=== PATIENT | female | born 1960 | race Caucasian/White ===

== ENCOUNTER 2017-04-28 10:34 | Emergency (ER) | payer SELFPAY ==
[2017-04-28 11:29] VITALS: BP 160/97
--- NOTE | 2017-04-28 11:56 | UC ---
Dizzy HPI HPI Summary: Pt presents with dizziness. She tells me that she received the flu shot 6 days ago. 5 days ago she ate seafood for dinner and fault nauseous afterwards. 4 days ago she was getting ready to go for a morning walk, bent over to pet the neighbor's dog, and when she stood up - she had severe dizziness. Later that day the dizziness persisted and she started vomiting (a total of ~9 times that day). For the past 3 days she has still had dizziness and feeling off balance, but no vomiting. She also complains of her left ear feeling "full" with a lot of "pressure". Denies headache, pain, ST, cough, SOB, chest pain, palpitations, N/V/D/C other than noted, no slurring of speech, vision changes, weakness or numbness. She also tells me that she has a history of sinus surgery. - History Of Current Complaint Chief Complaint: UCEar Stated Complaint: EARS CLOGGED, AND DIZZINESS Time Seen by Provider: 04/28/17 11:55 Hx Obtained From: Patient Onset/Duration: Sudden Onset Timing: Constant Severity Initially: Moderate Severity Currently: Moderate Pain Intensity: 6 Pain Scale Used: 0-10 Numeric Character: Head Spinning, Room Spinning, Dizzy Aggravating Factor(s): Position Change, Change In Head Position Alleviating Factor(s): Nothing - Allergies/Home Medications Allergies/Adverse Reactions: Allergies Allergy/AdvReac Type Severity Reaction Status Date / Time Penicillins [PCN] Allergy Rash Verified 04/28/17 10:58 Home Medications: Home Medications Hydrochlorothiazide [Microzide-] 12.5 mg PO DAILY 04/28/17 [History Confirmed ] Pseudoephedrine HCl [Sudafed 12 Hour] 120 mg PO 04/28/17 [History] Try Cyclin Lo 1 tab 04/28/17 [History] PMH/Surg Hx/FS Hx/Imm Hx Previously Healthy: Yes - Surgical History Surgical History: Yes - Sinus surgery - Family History Known Family History: Positive: None - Social History Occupation: Employed Full-time Lives: With Family Alcohol Use: Occasionally Substance Use Type: None Smoking Status (MU): Never Smoked Tobacco Review of Systems Constitutional: Negative Skin: Negative Eyes: Negative ENT: Ear Ache Respiratory: Negative Cardiovascular: Negative Gastrointestinal: Negative Genitourinary: Negative Motor: Negative Neurovascular: Negative Musculoskeletal: Negative Neurological: Other - Dizziness Psychological: Negative Is Patient Immunocompromised?: No All Other Systems Reviewed And Are Negative: Yes Physical Exam Triage Information Reviewed: Yes Appearance: Well-Appearing, Well-Nourished Vital Signs: Initial Vital Signs Temp 98.1 F 04/28/17 10:54 Pulse 82 04/28/17 10:54 Resp 18 04/28/17 10:54 BP 166/94 04/28/17 10:54 Pulse Ox 100 04/28/17 10:54 Vital Signs Reviewed: Yes Eyes: Positive: Conjunctiva Clear, Other: - EOMI. No papilledema. No nystagmus. ENT: Positive: Normal ENT inspection, Hearing grossly normal, Pharynx normal, TMs normal. Negative: Pharyngeal erythema, Nasal congestion, Nasal drainage, TM bulging, TM dull, TM red, Tonsillar swelling, Tonsillar exudate, Sinus tenderness Neck: Positive: Supple, Nontender, No Lymphadenopathy Respiratory: Positive: Chest non-tender, Lungs clear, Normal breath sounds, No respiratory distress, No accessory muscle use Cardiovascular: Positive: RRR, No Murmur, Pulses Normal Abdomen Description: Positive: Nontender, No Organomegaly, Soft. Negative: Bruit, CVA Tenderness (R), CVA Tenderness (L), Distended, Guarding Bowel Sounds: Positive: Present Musculoskeletal: Positive: Strength Intact, ROM Intact, No Edema Neurological: Positive: Alert, Muscle Tone Normal, Other: - A&Ox3. 3 word recall , remote, recent memory, ability to follow 2-step directions, and attention intact. CN II XII grossly intact. Motor: good muscle tone, strength 5/5 throughout. [id number] are intact. Gait with normal base. Romberg: maintains balance, no pronator drift. Sensory: Intact throughout. Reflexes: biceps, triceps, brachioradialis, knee, and ankle +2. Normal speech. No facial drooping. Psychological: Positive: Age Appropriate Behavior Skin: Negative: rashes, significant lesion(s) Dizzy Course/Dx - Course Course Of Treatment: Discussed with pt the possibility of emergent/urgent process including CVA, TIA, mass, arrhythmia, or PA. Pt refused an EKG and IVF, but elected to proceed with a head CT. CT:1. No CT evidence of acute intracranial abnormality. 2. Mild to moderate paranasal sinus mucosal disease improved at the sphenoid sinus but worse at the ethmoid air cells when compared to April 27, [address] CT. Advised her to use her at home nasacort and try OTC mucinex for sinuses. For dizziness she may try OTC meclizine. Advised to follow up if any red flag symptoms. She said she has had issues with sinuses similar to today before and they gave her 3 days of prednisone, which really helped - will try again today. - Differential Dx/Diagnosis Differential Diagnosis/HQI/PQRI: Benign Paroxysmal Positional Vertigo, Coronary Artery Disease, CVA, Hypovolemia, Labyrinthitis, Transient Ischemic Attack Provider Diagnoses: Dizziness. Chronic Sinusitis Discharge - Discharge Plan Condition: Stable Disposition: HOME Prescriptions: predniSONE TAB* [Deltasone TAB*] 10 mg PO DAILY #9 tab Patient Education Materials: Dizziness (ED) Referrals: Roge MOLINA,[place] Aguilar [Medical Doctor] - Theodore Blackman MD [Medical Doctor] - Additional Instructions: 1) Try Meclizine 25mg OTC once a day If you develop a fever, SOB, chest pain, new or worsening symptoms - please call your PCP or go to the ED. Your blood pressure was high at todays visit. Please see your primary provider within 4 weeks for recheck and re-evaluation.
--- NOTE | 2017-04-28 12:46 | RAD ---
INDICATION: Dizziness COMPARISON: CT of the sinuses dated April 27, 2006 TECHNIQUE: Contiguous axial sections of the brain were obtained from the skull base to the vertex without contrast. FINDINGS: The ventricles, cisterns and sulci are within normal limits. The aguirre-white matter differentiation is adequately maintained and there is no sulcal effacement. No significant focal abnormality or mass effect is present. There is no evidence for intracranial hemorrhage. No significant focal osseous abnormality is present. There is moderate mucosal thickening of the bilateral ethmoid air cells and the dependent visualized portion of the right maxillary sinus. The frontal and sphenoid sinuses are adequately aerated. There is no mastoid air cell effusion. IMPRESSION: 1. No CT evidence of acute intracranial abnormality. 2. Mild to moderate paranasal sinus mucosal disease improved at the sphenoid sinus but worse at the ethmoid air cells when compared to April 27, 2006 CT.
== END 2017-04-28 12:51 | disposition home or self-care (01) ==
LOC: UCEAST 10:34
DX: R42 Dizziness and giddiness (principal); J32.9 Chronic sinusitis, unspecified; Z72.89 Other problems related to lifestyle
CPT/HCPCS: 70450; 99202; G0463